=== PATIENT | female | born 1960 | race Caucasian/White ===

== ENCOUNTER 2016-02-21 00:43 | Emergency (ER) | payer OTHER, MEDICAID ==
[2016-02-21 01:35] LABS: SPECIFIC GRAVITY 1.015 (1.001-1.030); URINE BILIRUBIN NEGATIVE (NEGATIVE); URINE BLOOD 4+ (NEGATIVE); URINE GLUCOSE (UA) NEGATIVE (NEGATIVE); URINE LEUKOCYTE ESTERASE 1+ (NEGATIVE); URINE NITRITE NEGATIVE (NEGATIVE); URINE PROTEIN TRACE (NEGATIVE); URINE UROBILINOGEN NORMAL (0-1 mg/dl)
[2016-02-21 01:36] LABS: URINE APPEARANCE CLOUDY; URINE COLOR YELLOW
[2016-02-21 01:42] LABS: URINE BACTERIA RARE; URINE RBC >100 /hpf; URINE WBC >100 /hpf
[2016-02-21] MEDS ORDERED: CEFTRIAXONE 1 GRAM DUPLEX 50 ML IV ONE (03:00)
[2016-02-21] MEDS ORDERED: ONDANSETRON 4 MG/2ML 2 ML VIAL ONE (03:00)
[2016-02-21] MEDS ORDERED: SODIUM CHLORIDE 0.9% 1,000 ML ONE (03:01)
[2016-02-21] MEDS ORDERED: MORPHINE SULFATE 4 MG/ML SYRINGE ONE (03:01)
[2016-02-21] MEDS ORDERED: MORPHINE SULFATE 2 MG/ML SYRINGE ONE (03:01)
[2016-02-21 03:18] LABS: ABSOLUTE NEUTROPHIL COUNT 6.9 K/mm3 (1.8-7.7); BASO # 0.1 K/mm3 (0.0-0.2); BASO % 0.7 % (0.2-1.0); EOS # 0.2 (0.0-0.5); EOS % 2.1 % (0.9-2.9); HEMATOCRIT 47.7 % (37.0-47.0); HEMOGLOBIN 15.5 gm/l (12.0-16.0); IMM NEUT% 0.3 % (0-1); LYMPH # 2.6 (1.0-4.8); LYMPH % 23.3 % (15-45); MEAN CELL VOLUME 91.2 fl (81.0-99.0); MEAN CORPUSCULAR HEMOGLOBIN 29.6 pg (27.0-31.0); MEAN CORPUSCULAR HGB CONC 32.5 g/dl (33.0-37.0); MEAN PLATELET VOLUME 8.5 fl (7.4-10.4); MONO # 1.4 (0.0-0.8); MONO % 12.1 % (4-12); NEUT % 61.5 % (43-75); PLATELET COUNT 257 K/mm3 (130-400); RED CELL DISTRIBUTION WIDTH 13.8 % (11.5-14.5)
[2016-02-21 03:33] LABS: ALB/GLOB RATIO 1.3 (>1.0); ALBUMIN 4.4 gm/dL (3.5-5.7)
== END 2016-02-21 04:24 | disposition home or self-care (01) ==
LOC: ED 00:43
DX: N12 Tubulo-interstitial nephritis, not specified as acute or chronic (principal); F17.210 Nicotine dependence, cigarettes, uncomplicated
CPT/HCPCS: 83605; 85025; 87040; 87086; 80053; 87186; 81001; 87077; 96375; 99284; 96374; 96361; 99283; J2270 ×2; J2405; J7030; J0696